=== PATIENT | female | born 1985 | race Caucasian/White ===

== ENCOUNTER 2016-12-01 10:00 | Inpatient (IN) ==
[2016-12-01] MEDS ORDERED: Famotidine 20 MG/2 ML VIAL IVP PRN (11:05)
[2016-12-01] MEDS ORDERED: Naloxone 0.4 MG/ML INJ IVP PRN (11:05)
[2016-12-01] MEDS ORDERED: Oxytocin 20 units/ LR 1000 mL 20 UNIT/1,000 ML BAG IVC SCH (11:06)
[2016-12-01] MEDS ORDERED: Ringers Solution, Lactated 1,000 ML IVC SCH (11:15)
[2016-12-01 11:18] LABS: Basophils % 0.1 %; Eosinophils # 0.1 K/mcL (0.0-0.6); Eosinophils % 1.4 %; Hematocrit 41.7 % (35.3-44.9); Hemoglobin 14.1 g/dL (11.5-15.4); Immature Granulocytes % 0.4 % (0-4); Lymphocytes # 1.4 K/mcL (0.6-4.6); Mean Corpuscular HGB Conc 33.8 g/dL (31.6-35.5); Mean Corpuscular Hemoglobin 28.6 pg (28.0-33.3); Mean Corpuscular Volume 84.6 fL (83.0-100.0); Mean Platelet Volume 10.5 fL (9.4-12.4); Monocytes # 0.4 K/mcL (0.0-1.3); Monocytes % 4.3 %; Neutrophils # 6.4 K/mcL (1.6-8.9); Platelet Count 192 K/mcL (140-400); Red Blood Count 4.93 M/mcL (3.82-4.97); Red Cell Distribution Width 15.2 % (11.5-14.5); Segmented Neutrophils % 76.8 %
--- NOTE | 2016-12-01 11:33 | Anesthesia Evaluation PreOp ---
Date of Encounter: 12/01/16 Time of Encounter: 11:20 - Past History Planned Operation: CHU Cardiac History: Denies any Significant Hx Pulmonary History: Denies Any Significant HX CELLOPHANE WORKER History: Denies Any Significant HX Other Medical History: Diabetes Type II (Gestational), Other (iron deficiency anemia, treated) Anesthesia History: No Prior Anesthetic Complications, Past Anesthesia (wisdom teeth extraction) : Yes Alcohol Use: none Drug use: none Medications and Allergies Ferrous Sulfate [Iron] 1 tab PO DAILY 12/01/16 [History] Glyburide/Metformin HCl [Glyburid-Metformin 1.25-250 mg] 1 each PO 12/01/16 [ History] Vit/Iron Fumarate/FA [ Tablet] 1 each PO DAILY 12/01/16 [ History] Allergies No Known Allergies Allergy (Verified 12/01/16 11:00) - Meds/Allergy Pre-op Review Medications Reviewed: Yes Allergies Reviewed: Yes Beta Blockers on Current Med List: No Anesthesia Results - Labs 12/01/16 10:55 Anesthesia Exam BP 119/67 P 86 R 16 T 97.8 Height: 5'1" Weight: 69.5kg NPO (# of Hours): 2 Pain Scale: 0 Pain Scale Used: Numeric (1 - 10) - HEENT Pupil (Motor): Pupils equal Mallampati: II Teeth: Normal Oral Opening: Greater than 3 - CELLOPHANE WORKER LOC: Oriented CELLOPHANE WORKER Motor: Normal RUE, Normal LUE, Normal RLE, Normal LLE, Normal Face CELLOPHANE WORKER Sensory: Normal: RUE, LUE, RLE, LLE, Face - Cardiac Rhythm: Regular Murmur: None JVD: No Carotid Bruit: No - Pulmonary Breath Sounds: bilateral Clear Respiratory Effort: Symmetrical Anesthesia Assess/Plan ASA Score: 2 Modified Michaela Scale for Level of Consciousness: Cooperative, oriented, and tranquil Anesthetic Plan: Regional Autologous Blood: No Monitoring Plan: Standard Monitors Recovery Plan: Other
--- NOTE | 2016-12-01 12:48 | OB/GYN History & Physical ---
Date of Encounter: 12/01/16 Time of Encounter: 12:36 Assessment and Plan (1) Gestational diabetes mellitus, class A2 Current visit: Yes Status: Acute Monitor blood sugars PRN Monitor for hypo/hyperglycemic symptoms. (2) 39 weeks gestation of Current visit: Yes Status: Acute Admit for IOL with pitocin GBS negative O+ Patient may have nubain upon request Patient may have epidural upon request Anticipate vaginal delivery POC per consult with Dr Simon History of Present Illness Chief complaint: Induction of labor HPI: Ms. Langston is a 31 year old at 39 weeks and 5 days gestation that presents to labor and delivery for a scheduled induction of labor for gestational diabetes. She is seen by Dr Simon. Her has been complicated with Gestational Diabetes controlled with Glyburide daily at dinner. She is O+ and GBS negative. She is Rubella and Varicella immune. She is Hep B negative and T-Pallidum negative. Patient denies headache, vision changes, leaking of fluid, and vaginal bleeding. She states positive movement. Past Med Surg Social Fam HX - Past Medical History Medical history: no medical history Psychiatric history: other - Social History Smoking Status: Never smoker Alcohol use: none Drug use: none - Family History Mother Living Status: Still Living Hx Family Cardiac Disorders: Yes (HTN) Hx Family Respiratory Disorders: No Hx Family Cancer: No Hx Family GI Disorders: No Hx Family Genitourinary Disorders: No Hx Family Endocrine Disorder: No Hx Family Musculoskeletal Disorders: No Hx Family Neuromuscular Disorders: No Hx Family Neurologic Disorders: Yes (Alzheimers) Hx Family HEENT Disorders: No Hx Family Autoimmune Disorders: No Hx Family Reproductive Disorders: No Hx Family Psychosocial Disorders: No Hx Family Medical Disorders: No Obstetrical History - Pregnancies : 3 Para: 1 Term: 1 : 0 Ab's: 1 Livin Medications and Allergies Ferrous Sulfate [Iron] 1 tab PO DAILY 12/01/16 [History] Glyburide/Metformin HCl [Glyburid-Metformin 1.25-250 mg] 1 each PO 12/01/16 [ History] Vit/Iron Fumarate/FA [ Tablet] 1 each PO DAILY 12/01/16 [ History] Allergies No Known Allergies Allergy (Verified 12/01/16 11:00) Review of System OB All systems PM: reviewed and no additional remarkable complaints except as stated Exam - Constitutional Constitutional: well developed, well nourished, no acute distress, average body habitus - HEENT HEENT: Normocephaly, Mucus Membranes Moist - Neck Neck exam: full ROM - Lungs Respiratory exam: CTAB - Cardiovascular Cardiovascular exam: RRR, +S1, +S2 - Breasts Breast: bilateral: normal - Abdomen Abdomen: Present: bowel sounds normal, gravid, non tender - Extremities Extremities exam: normal capillary refill, normal inspection Deep Tendon Reflex Grade: 2+ Normal - Vulva Vulva: bilateral: normal - Vagina Vagina: Present: normal moisture - Cervix Dilation: 4 (Per RN) Effacement: 80 (Per RN) Station: -1 - Uterus Uterus exam: Present: normal size, normal contour (gravid appropriate for gestation age) Results Result Diagrams: 12/01/16 10:55 Abnormal lab results RDW 15.2 % (11.5-14.5) H 12/01/16 10:55 All other labs normal. - VTE Reasons for not Prescribing Prophylaxis: Treatment not Indicated - Low risk for VTE
--- NOTE | 2016-12-01 15:39 | OB Labor Progress Note ---
Date of Encounter: 12/01/16 Time of Encounter: 15:36 Labor Progress Note - Subjective Subjective: Patient tolerating contractions; she is able to breath through them - Vital Signs Vital Signs: VSS - Cervix Cervix: 4-5/90/-1 - Heart Tones Heart Tones: FHTs 135 with moderate variability and 15 x 15 accels - [place]: COntractions every 2-4 minutes 45-60 seconds in length. palpate mild. uterus palpates soft between contractions - Plan Plan: Routine labor management Pitocin currently infusion Pain is well controlled Patient elects to have epidural placed prior to AROM Anticipate vaginal delivery POC per consult with Dr Simon.
[2016-12-01] MEDS ORDERED: *HR* FentaNYL (PF) 100 MCG/2 ML VIAL ONE (15:40)
[2016-12-01] MEDS ORDERED: Bupivacaine-MPF 0.25% 10 ML VIAL ONE (15:40)
[2016-12-01] MEDS ORDERED: Epidural Premix (fent/bupiv) 110 ML EP ONE (15:40)
[2016-12-01] MEDS ORDERED: EPHEDrine 50 MG/ML VIAL IVP PRN (16:58)
[2016-12-01] MEDS ORDERED: Bupivacaine-MPF 0.25% 10 ML VIAL EP ONE (16:58)
[2016-12-01] MEDS ORDERED: Ondansetron 4 MG/2 ML VIAL IVP PRN (16:58)
[2016-12-01] MEDS ORDERED: *HR* FentaNYL (PF) 100 MCG/2 ML VIAL EP ONE (16:58)
[2016-12-01] MEDS ORDERED: Epidural Premix (fent/bupiv) 110 ML EP SCH (17:00)
--- NOTE | 2016-12-01 17:03 | Anesthesia Procedures ---
Date of Encounter: 12/01/16 Time of Encounter: 16:10 Procedures: Anesthesia - Epidural/Spinal Patient ID/Chart reviewed: Yes Patient examined: Yes OB Eval: Gestational age: 39.6 OB Eval: : 2 OB Eval: Hx Para: 1 OB Eval: Dilated at (cm): 4 OB Eval: Contractions: Non-stressed pattern Supplemental Oxygen: None/Room Air Site Prep: Aseptic Technique, Sterile prep and drape, Povidone-Iodine 1% Patient position: upright Local Anesthetic: Lidocaine 1% Amount of Local Anesthetic used: 3 Touhy Needle Gauge: 18 Touhy Needle Depth (cm): 6 Catheter Depth at Skin (cm): 15 Test Dose (1.5% Lido + Epi): Volume given (mls): 3 Test Dose Result: Negative Loading Dose: 0.25% Marcaine (mls): 8 Loading Dose: Fentanyl (mcg): 100 Loading Dose Administered: Thru Catheter Infusion Med: 0.125% Bupivacaine w/ 2 mcg/ml Fentanyl Infusion Rate (mls/hr): [address]: Tegaderm, Tape Interspace Used: L4-L5 Loss of Resistance (CJ): Yes Blood: No CSF: No Paresthesia: No Procedure: CHU placed in upright position 1st pass without any immediate noted complications. VSS and FHT stable throughout. Vitals + FHT's: 1610 BP 127/80 P 109 R 16 1641 BP 116/67 P 95 R 16 FHT 130s
[2016-12-01] MEDS ORDERED: EPHEDrine 50 MG/ML VIAL ONE (17:12)
--- NOTE | 2016-12-01 18:46 | OB Labor Progress Note ---
Date of Encounter: 12/01/16 Time of Encounter: 18:44 Labor Progress Note - Subjective Subjective: Patient doing well with epidural. Comfortable in bed. - Vital Signs Vital Signs: VSS - Cervix Cervix: 5-6/100/-1 - Heart Tones Heart Tones: 130's moderate variability with 15 x 15 accels no decels - [place]: contractions every 2-3 minutes 45 seconds in length. moderate to palpate. uterus palpates soft between contractions - Interventions Interventions: AROM for small amount of clear amount of blood tinged fluid. and fetus tolerated well. - Plan Plan: Continue routine labor management Patient GBS negative Pain well controlled Continue to titrate pitocin for adequate labor Anticipate vaginal delivery POC per consult with Dr Simon.
[2016-12-01] MEDS ORDERED: Mag Hydrox/Al Hydrox/Simeth 30 ML UDC PO PRN (20:22)
[2016-12-01] MEDS ORDERED: Lidocaine 1% 20 ML MDV ONE (21:15)
--- NOTE | 2016-12-01 21:51 | OB/GYN Procedure Note ---
Delivery - Delivery Date: 12/01/16 Provider: Tana Simon (Lorena Solano CNM Delivered; Dr Simon repaired) Intrapartum events: none Delivery induction: oxytocin Delivery augmentation: rupture of membranes Delivery monitor: external FHT, external uterine Anesthesia: epidural Estimated Blood Loss: 800 - (s) A Delivery Date: 12/01/16 Delivery Time: 20:54 Position: JAISON Route of delivery: Gender: Female Viability: Viable Pounds: 7 Ounces: 14 at 1 minute: 8 at 5 mins: 9 Shoulder Dystocia: not encountered Specimens collected: cord blood Placenta: spontaneous Cord: 3 umbilical vessels - Repair Episiotomy: none Laceration Description: Perineal - 2nd Degree, Vaginal, Labial - Complications Delivery complications: hemorrhage (Concealed hemorrhage) - Disposition Mom disposition: stable in LDR [place] disposition: stable in LDR - Comments Comments: Patient progressed to complete and began coached pushing in the lithotomy position. of viable vigorous female in JAISON over second degree perineum. Shoulders delivered easily. No shoulder dytocia, no nuchal, and no meconium stained fluid present. placed on maternal abdomen; cord clamped and cut when cord stopped pulsing. Apgars 8 and 9 at one and five minutes of age. Placenta delivered spontaneously; appears grossly intact with 3 vessel cord. Concealed hemorrhage noted behind placenta when placenta delivered. Uterus firmed quickly with fundal massage. Dr Simon present for delivery for proctoring. Dr Simon assumed care for repair. EBL 800mL. Second degree repair with 3-0 vicryl in standard fashion. She continued to have bleeding around the suture. Vaginal packing was placed for 45 minutes with frequent monitoring. The packing appeared serosanguinous flulid, removed and vagina began to bleed again. Anesthesia was called and patient was taken to OR for repair. Epidural was bolused. Time out for vaginal repair performed. Upon visualization second degree extended to a vaginal sulcus tear on the left that was repaired in a running locked fashion with 3-0 vicryl using wall suction. A left labial laceration was also sutured in figure of 8 fashion and hemostasis was finally assured. An additional 200 ml in suction making the final EBL of delivery and repair 1000 ml. Hgb preop 10.5. She was bolused intraop. 2 units on hold if needed in morning. Patient taken to her LDR for recovery.
[2016-12-01 23:01] LABS: Basophils % 0.2 %; Eosinophils % 0.2 %; Hematocrit 31.7 % (35.3-44.9); Immature Granulocytes % 0.5 % (0-4); Lymphocytes # 1.5 K/mcL (0.6-4.6); Mean Corpuscular HGB Conc 33.1 g/dL (31.6-35.5); Mean Corpuscular Hemoglobin 28.5 pg (28.0-33.3); Mean Corpuscular Volume 86.1 fL (83.0-100.0); Mean Platelet Volume 10.3 fL (9.4-12.4); Monocytes # 0.9 K/mcL (0.0-1.3); Monocytes % 4.9 %; Neutrophils # 16.6 K/mcL (1.6-8.9); Platelet Count 196 K/mcL (140-400); Red Blood Count 3.68 M/mcL (3.82-4.97); Red Cell Distribution Width 15.1 % (11.5-14.5); Segmented Neutrophils % 86.2 %
[2016-12-01] MEDS ORDERED: *HR* Phenylephrine 10 MG/ML VIAL ONE (23:06)
[2016-12-01] MEDS ORDERED: Ringers Solution, Lactated 1,000 ML ONE (23:08)
[2016-12-01 23:20] LABS: Hemoglobin 10.5 g/dL (11.5-15.4)
[2016-12-01] MEDS ORDERED: Acetaminophen IV 1,000 MG/100 ML INFUS..BTL IVPB STA (23:25)
[2016-12-02] MEDS ORDERED: Oxytocin 20 units/ LR 1000 mL 20 UNIT/1,000 ML BAG IVC SCH (01:59)
[2016-12-02] MEDS ORDERED: Benzocaine/Menthol 56 GM AEROSOL SPRAY TP PRN (01:59)
[2016-12-02] MEDS ORDERED: Mag Hydrox/Al Hydrox/Simeth 30 ML UDC PO PRN (01:59)
[2016-12-02] MEDS ORDERED: Acetaminophen 325 MG TABLET PO PRN (01:59)
[2016-12-02] MEDS ORDERED: Sennosides 8.6 MG TABLET PO PRN (01:59)
[2016-12-02] MEDS ORDERED: *HR* Promethazine 25 MG/ML VIAL IVP PRN (01:59)
[2016-12-02] MEDS ORDERED: *HR* HYDROcodone/Acet 5/325 mg TABLET PO PRN (01:59)
[2016-12-02] MEDS ORDERED: Ringers Solution, Lactated 1,000 ML ONE (03:56)
[2016-12-02 04:07] LABS: Basophils % 0.1 %; Eosinophils % 0.1 %; Hematocrit 23.4 % (35.3-44.9); Immature Granulocytes % 0.7 % (0-4); Lymphocytes # 1.4 K/mcL (0.6-4.6); Lymphocytes % 10.7 %; Mean Corpuscular HGB Conc 32.9 g/dL (31.6-35.5); Mean Corpuscular Hemoglobin 28.5 pg (28.0-33.3); Mean Corpuscular Volume 86.7 fL (83.0-100.0); Mean Platelet Volume 10.7 fL (9.4-12.4); Monocytes # 0.5 K/mcL (0.0-1.3); Neutrophils # 11.3 K/mcL (1.6-8.9); Platelet Count 161 K/mcL (140-400); Red Cell Distribution Width 15.4 % (11.5-14.5); Segmented Neutrophils % 84.4 %
[2016-12-02 04:10] LABS: Hemoglobin 7.7 g/dL (11.5-15.4)
[2016-12-02] MEDS ORDERED: 0.9 % Sodium Chloride 500 ML ONE (04:51)
[2016-12-02] MEDS: Ibuprofen 600 MG TABLET PO PRN ×2 (06:42→15:50)
[2016-12-02] MEDS ORDERED: NON-FORMULARY MEDICATION 1 EACH EACH (Prenatal Vit/Iron Fumarate/Fa [Prenatal Tablet] 1 EA PO SCH (09:00)
[2016-12-02] MEDS ORDERED: Prenatal Vit/FA 1 EACH TABLET PO SCH (09:00)
[2016-12-02] MEDS ORDERED: 0.9 % Sodium Chloride 1,000 ML ONE (10:27)
--- NOTE | 2016-12-02 10:30 | Anesthesia Evaluation Post Op ---
Date of Encounter: 12/02/16 Time of Encounter: 10:28 - Vital Signs Vital Signs: Vital Signs/O2 Sat, Most Current Temp Pulse Resp BP Pulse Ox 98.9 F 86 16 104/63 100 12/02/16 09:30 12/02/16 09:30 12/02/16 09:30 12/02/16 09:30 12/02/16 09:30 - Lungs Lungs: Clear Ascult./Percussion - Airway Airway: Non-obstructed - Cardiovascular Regular Rate - Mental Status Mental Status: Alert & Oriented, Answers Appropriately - Pain Pain Scale: 0 - Nausea Vomiting Nausea Vomiting: Not Present - Hydration Hydration: Tolerates oral liquids Notes: 12/02/16 10:29 Patient receiving PRBCs for low HGB. Denies current symptoms of light headedness, nausea, or palpitations. - Discharge PostOp Status: Transfer Patient to floor
--- NOTE | 2016-12-02 14:40 | OB/GYN Progress Note ---
Date of Encounter: 12/02/16 Time of Encounter: 14:38 - Assessment and Plan (1) Vaginal delivery Current Visit: Yes Status: Acute Continue routine care possible discharge home tomorrow (2) anemia Current Visit: Yes Status: Acute Patient was transfused 2 units will start ferrous sulfate TID Repeat CBC in am (3) Breast feeding status of mother Current Visit: Yes Status: Acute support prn Subjective - Subjective Principal diagnosis: day 1, hemorrhage Interval history: Patient is day 1. Patient had hemorrhage secondary to laceration. Patient was transfused 2 units of RBCs. Patient has been NPO. Patient doing well. Denies feeling light headed or dizzy. Vital signs are stable. Patient states she is starving. Patient is breast feeding . Lochia is light and without blood clots. FF @ U/1. Patient reports: voiding normally, pain well controlled, ambulating normally : doing well, nursing well Objective - Latest Vital Signs Latest vital signs: Vital Signs Temp Pulse Resp BP Pulse Ox 12/02/16 13:45 98.9 F 88 16 97/60 12/02/16 10:52 98.5 F 78 14 99/62 100 12/02/16 10:37 98.7 F 76 14 99/64 98 12/02/16 09:30 98.9 F 86 14 104/63 100 12/02/16 08:32 98.6 F 82 16 99/51 98 12/02/16 07:45 14 12/02/16 05:15 98.7 F 83 16 96/51 98 12/02/16 04:58 98.8 F 93 18 94/55 98 Intake and Output 12/01/16 12/02/16 12/02/16 23:59 07:59 15:59 Intake Total 0 / 0 700 / 700 Output Total 1550 / 1550 900 / 900 Balance -1550 / -1550 -200 / -200 Intake: Blood Product 0 / 0 700 / 700 Rbcs Leuko Poor As-1 0 / 0 350 / 350 Unit [id number] Rbcs Leuko Poor As-1 350 / 350 Unit [id number] Output: Urine 600 / 600 Catheter 1550 / 1550 300 / 300 Other: Weight 70.4 kg Patient Weight 12/02/16 23:59 Weight 70.4 kg - Exam Lungs: bilateral: normal Chest: Normal S1, Normal S2 Extremities: Present: normal Abdomen: Present: normal appearance, soft Uterus: Present: normal, firm Uterus Position: 1 Finger Below Umbilicus, Midline - Labs Labs: Laboratory Results - last 24 hr 12/01/16 12/01/16 12/01/16 12:27 22:50 22:50 WBC 19.2 H D RBC 3.68 L Hgb 10.5 L D Hct 31.7 L MCV 86.1 MCH 28.5 MCHC 33.1 RDW 15.1 H Plt Count 196 MPV 10.3 Immature Gran % 0.5 Seg Neutrophils % 86.2 Lymphocytes % 8.0 Monocytes % 4.9 Eosinophils % 0.2 Basophils % 0.2 Neutrophils # 16.6 H Lymphocytes # 1.5 Monocytes # 0.9 Eosinophils # 0.0 Basophils # 0.0 POC Glucose 90 H Blood Type O POSITIVE Antibody Screen NEGATIVE Crossmatch See Detail 12/02/16 03:33 WBC 13.4 H RBC 2.70 L Hgb 7.7 L D Hct 23.4 L MCV 86.7 MCH 28.5 MCHC 32.9 RDW 15.4 H Plt Count 161 MPV 10.7 Immature Gran % 0.7 Seg Neutrophils % 84.4 Lymphocytes % 10.7 Monocytes % 4.0 Eosinophils % 0.1 Basophils % 0.1 Neutrophils # 11.3 H Lymphocytes # 1.4 Monocytes # 0.5 Eosinophils # 0.0 Basophils # 0.0 POC Glucose Blood Type Antibody Screen Crossmatch
[2016-12-03 05:52] LABS: Hematocrit 25.5 % (35.3-44.9); Hemoglobin 8.5 g/dL (11.5-15.4); Mean Corpuscular HGB Conc 33.3 g/dL (31.6-35.5); Mean Corpuscular Hemoglobin 28.9 pg (28.0-33.3); Mean Corpuscular Volume 86.7 fL (83.0-100.0); Mean Platelet Volume 10.9 fL (9.4-12.4); Platelet Count 141 K/mcL (140-400); Red Blood Count 2.94 M/mcL (3.82-4.97)
[2016-12-03 07:44] VITALS: BP 97/59
--- NOTE | 2016-12-03 10:27 | Discharge Summary ---
Date of Encounter: 12/03/16 Time of Encounter: 10:24 - Discharge Diagnosis (1) Anemia associated with acute blood loss Priority: Secondary Status: Acute (2) Breast feeding status of mother Priority: Secondary Status: Acute (3) Gestational diabetes mellitus, class A2 Priority: Secondary Status: Acute Comments: Pt will need 2 our GTT in 6 weeks. (4) anemia Priority: Secondary Status: Acute Comments: Pt reports feeling much better since transfusion. Home on iron. (5) Vaginal delivery Priority: Primary Status: Acute Comments: Pt meeting milestones. Lochia light. - Discharge Medications Prescriptions: Ibuprofen [Motrin] 600 mg PO Q6HR PRN #60 tablet PRN Reason: Cramping Docusate [Colace] 100 mg PO BID #60 capsule Home Medications: Ferrous Sulfate [Iron] 1 tab PO DAILY 12/01/16 [History] Vit/Iron Fumarate/FA [ Tablet] 1 each PO DAILY 12/01/16 [ History] Benzocaine/Menthol [place] [Dermoplast [place]] 1 appl TP QID PRN #0 aerosol [Rx] Breast Pump [BREAST PUMP] 1 each .ROUTE AD #1 each 12/03/16 [Rx] Docusate [Colace] 100 mg PO BID #60 capsule 12/03/16 [Rx] Hydrocortisone/Pramoxine [Epifoam] 10 gm TP TID PRN #0 foam 12/03/16 [Rx] Ibuprofen [Motrin] 600 mg PO Q6HR PRN #60 tablet 12/03/16 [Rx] Allergies/Adverse Reactions: Allergies No Known Allergies Allergy (Verified 12/01/16 11:00) Data Procedures and tests throughout hospitalization: Laboratory Tests 12/01/16 12/01/16 12/01/16 10:55 12:27 22:50 WBC 8.4 RBC 4.93 Hgb 14.1 Hct 41.7 MCV 84.6 MCH 28.6 MCHC 33.8 RDW 15.2 H Plt Count 192 MPV 10.5 Immature Gran % 0.4 Seg Neutrophils % 76.8 Lymphocytes % 17.0 Monocytes % 4.3 Eosinophils % 1.4 Basophils % 0.1 Neutrophils # 6.4 Lymphocytes # 1.4 Monocytes # 0.4 Eosinophils # 0.1 Basophils # 0.0 POC Glucose 90 H Blood Type O POSITIVE Antibody Screen NEGATIVE Crossmatch See Detail 12/01/16 12/02/16 12/03/16 22:50 03:33 04:48 WBC 19.2 H D 13.4 H 11.3 H RBC 3.68 L 2.70 L 2.94 L Hgb 10.5 L D 7.7 L D 8.5 L Hct 31.7 L 23.4 L 25.5 L MCV 86.1 86.7 86.7 MCH 28.5 28.5 28.9 MCHC 33.1 32.9 33.3 RDW 15.1 H 15.4 H 16.0 H Plt Count 196 161 141 MPV 10.3 10.7 10.9 Immature Gran % 0.5 0.7 Seg Neutrophils % 86.2 84.4 Lymphocytes % 8.0 10.7 Monocytes % 4.9 4.0 Eosinophils % 0.2 0.1 Basophils % 0.2 0.1 Neutrophils # 16.6 H 11.3 H Lymphocytes # 1.5 1.4 Monocytes # 0.9 0.5 Eosinophils # 0.0 0.0 Basophils # 0.0 0.0 POC Glucose Blood Type Antibody Screen Crossmatch Labs on day of discharge: Labs from last 24 hours 12/03/16 12/01/16 04:48 22:50 WBC 11.3 H RBC 2.94 L Hgb 8.5 L Hct 25.5 L MCV 86.7 MCH 28.9 MCHC 33.3 RDW 16.0 H Plt Count 141 MPV 10.9 Blood Type O POSITIVE Antibody Screen NEGATIVE Crossmatch See Detail Date of admission: 12/01/16 10:14 Primary care physician: Dhara Matthews CNP Consults: 12/02/16 01:59 Consult to Protective Signal Installer Helper [CONS] Routine Comment: Vaginal delivery, consult needed Discharging clinician: Micheline Rivero Anticipated date of discharge: 12/03/16 - Patient Status Disposition: Home, Self-Care Condition: Good Functional capacity at discharge: independent ambulation Overall status at discharge: patient is progressing back to baseline - Discharge Instructions Follow Up With: Dhara Matthews CNP [Primary Care Provider] - Tana Simon DO [Partnered Physician] - - Diet and Activity Activity: increase activity as tolerated Diet: regular diet Hospital Course Reason for admission: induction of labor Delivery: Episiotomy: none Laceration: 2nd degree Other procedures: transfusion complications: perineal laceration, transfusion Discharge diagnosis: IUP at term delivered baby: female Hospital course: - Delivery Date: 12/01/16 Provider: Tana Simon (Lorena Solano, [facility] Delivered; Dr Simon repaired) Intrapartum events: none Delivery induction: oxytocin Delivery augmentation: rupture of membranes Delivery monitor: external FHT, external uterine Anesthesia: epidural Estimated Blood Loss: 800 - Infant (s) A Infant Delivery Date: 12/01/16 Delivery Time: 20:54 Position: JAISON Route of delivery: Gender: Female Viability: Viable Pounds: 7 Ounces: 14 at 1 minute: 8 at 5 mins: 9 Shoulder Dystocia: not encountered Specimens collected: cord blood Placenta: spontaneous Cord: 3 umbilical vessels - Repair Episiotomy: none Laceration Description: Perineal - 2nd Degree, Vaginal, Labial - Complications Delivery complications: hemorrhage (Concealed hemorrhage) - Disposition Mom disposition: home PPD#2 [place] disposition: home with mother, Time Attestation: Total time spent providing and/or coordinating discharge services: Time Spent: Less than 30 minutes Exam - Constitutional Vitals: Temp Pulse Resp BP Pulse Ox 98.4 F 105 16 97/59 99 12/03/16 07:43 12/03/16 07:43 12/03/16 07:43 12/03/16 07:43 12/03/16 07:43 General appearance IM: A&O X 3, pleasant, no acute distress - Respiratory Respiratory exam: Present: CTAB - Cardiovascular Cardiovascular exam IM: Present: RRR, +S1, +S2 - GI/Abdominal GI/Abdominal exam IM: soft - Uterine Tone: Firm Uterus Position: 1 Finger Below Umbilicus - Extremities Exam Extremities exam IM: Present: normal inspection, pedal edema (2+ bilaterally, no erythema or warmth) - Neurological Exam Neurological exam: normal gait, oriented X3 - Psychiatric Additional comments: reports good mood
== END 2016-12-03 14:00 | disposition home or self-care (01) | DRG 768 ==
LOC: 1NENULAB 10:14 → 1NENUOBS 12-02 09:51
PROVIDERS: ADMIT Obstetrics & Gynecology; ATTEND Obstetrics & Gynecology